=== PATIENT | male | born 1960 | race Two or more races ===

== ENCOUNTER 2019-01-28 09:22 | Outpatient (CLI) | payer OTHER | END 2019-01-28 10:00 | disposition home or self-care (01) | LOC: RAD 09:22 | DX: E78.49 Other hyperlipidemia (principal); I10 Essential (primary) hypertension ==

== ENCOUNTER 2021-08-20 13:28 | Outpatient (CLI) | payer OTHER | END 2021-08-20 13:39 | disposition home or self-care (01) | LOC: RAD 13:28 | DX: J32.9 Chronic sinusitis, unspecified (principal) ==

== ENCOUNTER 2021-10-08 15:59 | Outpatient (CLI) | payer OTHER | END 2021-10-08 16:07 | disposition home or self-care (01) | LOC: RAD 15:59 | PROVIDERS: ATTEND Chiropractor | DX: M54.2 Cervicalgia (principal); M54.6 Pain in thoracic spine; M54.50 Low back pain, unspecified ==

== ENCOUNTER 2024-10-25 15:06 | Outpatient (CLI) | payer OTHER ==
[2024-10-25] MEDS ORDERED: IRBESARTAN75 MG PO (17:19)
== END 2024-10-25 15:16 | disposition home or self-care (01) ==
LOC: RAD 15:06
DX: I10 Essential (primary) hypertension (principal)

== ENCOUNTER 2024-10-25 16:33 | Inpatient (IN) | payer OTHER ==
[~2024-10-25] VITALS: Ht 180.3 cm; Wt 90.7 kg
[2024-10-25] MEDS ORDERED: IRBESARTAN75 MG PO (17:19)
--- NOTE | 2024-10-25 17:34 | NUR ---
PACIENTE ALERTA Y ORIENTADO X3, INDICA PRESENTAR PALPITACIONES, SE REALIZA EKG Y SE PRESENTA A DR. NIEVES. SE UBICA EN AREA DE CUIDADO CRITICO.
[2024-10-25] MEDS ORDERED: DILTIAZEM HCL 25 MG/5 ML VIAL IV ONE (18:00)
[2024-10-25 18:10] LABS: BASO % 0.6 % (0.1-1.2); EOS # 0.35 (0.04-0.54); EOS % 4.2 % (0.7-7.0); LYMPH # 1.36 (1.18-3.74); LYMPH % 16.3 % (19.3-53.1); MEAN PLATELET VOLUME 9.20 fl (9.4-12.4); MONO # 0.87 (0.24-0.82); MONO % 10.4 % (4.7-12.5); NEUT # 5.68 (1.56-6.13); NEUT % 68.1 % (34.0-71.1); RED CELL DISTRIBUTION WIDTH 11.9 % (11.6-14.4)
--- NOTE | 2024-10-25 18:20 | NUR ---
SE RECIBE A PACIENTE ALERTA Y ORIENTADO X3 EN AREA DE CRITICO, SE CONECTA A MONITOR CARDIACO Y OXIMETRIA CONTINUA. SE EDUCA A PACIENTE SOBRE PROCESO DE CHIO DE MUESTRAS, CANALIZACION Y ADMINISTRACION DE MEDICAMENTOS, REFIERE ENTENDER. SE KATHIA MUESTRAS DE LABORATORIO Y SE ADMINISTRAN MEDICAMENTOS MIKE ORDEN MEDICA Y BAJO MEDIDAS ASEPTICAS. SE DON A PACIENTE EN CAMA A NIVEL DE PISO JUNTO CON BARRANDAS ELEVADAS, SE OBSERVAN POR CAMBIOS SIGNIFICATIVOS EN CONDICION.
[2024-10-25 18:47] LABS: INR 1.0
[2024-10-25 18:55] LABS: ALT/SGPT 27.0 U/L (12-78); AST/SGOT 17.0 U/L (15-37); BILIRUBIN TOTAL 0.71 mg/dL (0.3-1.2); BUN CREA RATIO 15.0 (7.0-25.0); CREATININE SERUM 1.43 mg/dL (0.70-1.30); GFR 50.11; GLOBULINA 3.6 G/DL (2.4-3.5); GLUCOSE FASTING 113.0 mg/dL (65-100); OSMOLALITY SERUM 284.0 MOSM/KG (275-295)
[2024-10-25] MEDS ORDERED: ENOXAPARIN SODIUM 60 MG/0.6 ML SYRINGE SUBCUTANEO SCH (22:26)
[2024-10-25] MEDS ORDERED: 0.9 % SODIUM CHLORIDE 1,000 ML IV SCH (22:30)
[2024-10-25] MEDS ORDERED: ACETAMINOPHEN 500 MG GEL..CAP PO PRN (22:30)
[2024-10-26] VITALS (9 sets, daily range): BP systolic 99–136; BP diastolic 63–84; O2SAT 90–99
[2024-10-26] MEDS ORDERED: METOPROLOL SUCCINATE 25 MG TAB.SR.24H PO SCH (09:00)
[2024-10-26] MEDS ORDERED: FAMOTIDINE/PF 20 MG in 0.9 % SODIUM CHLORIDE 8 ML IV PUSH SCH (09:00)
[2024-10-27] VITALS (7 sets, daily range): BP systolic 115–147; BP diastolic 73–85; O2SAT 90–98
[2024-10-27 06:55] LABS: ALT/SGPT 20.0 U/L (12-78); AST/SGOT 11.0 U/L (15-37); BILIRUBIN TOTAL 0.95 mg/dL (0.3-1.2); BUN CREA RATIO 16.0 (7.0-25.0); CREATININE SERUM 0.94 mg/dL (0.70-1.30); GFR 81.32; GLOBULINA 3.0 G/DL (2.4-3.5); GLUCOSE FASTING 99.0 mg/dL (65-100); OSMOLALITY SERUM 284.0 MOSM/KG (275-295); PHOSPHOKINASE CREATININE 51.0 U/L (39-308)
[2024-10-27] MEDS ORDERED: ASPIRIN 81 MG TABLET.EC PO SCH (09:00)
[2024-10-27] MEDS ORDERED: RIVAROXABAN 20 MG TABLET PO SCH (09:00)
[2024-10-27 12:00] LABS: BASO % 0.7 % (0.1-1.2); EOS # 0.28 (0.04-0.54); EOS % 3.3 % (0.7-7.0); LYMPH # 1.51 (1.18-3.74); LYMPH % 17.8 % (19.3-53.1); MEAN PLATELET VOLUME 9.20 fl (9.4-12.4); MONO # 1.22 (0.24-0.82); NEUT # 5.33 (1.56-6.13); NEUT % 62.6 % (34.0-71.1); RED CELL DISTRIBUTION WIDTH 11.9 % (11.6-14.4)
[2024-10-27 12:06] LABS: MONO % 14.4 % (4.7-12.5)
[2024-10-27] MEDS ORDERED: TOPROL XL25 M1 PO (17:22)
[2024-10-27] MEDS ORDERED: ST. JOSEPH ASPI81 M2 PO (17:23)
== END 2024-10-27 18:35 | disposition home or self-care (01) | DRG 309 ==
LOC: ER 16:33 → MEDI 23:19
PROVIDERS: Emergency Medicine; Internal Medicine Nephrology; ADMIT Internal Medicine; ATTEND Internal Medicine
PROC: B246ZZZ Ultrasonography of Right and Left Heart (ICD-10-PCS; principal; 2024-10-25)
PROC: 4A12X4Z Monitoring of Cardiac Electrical Activity, External Approach (ICD-10-PCS; 2024-10-26)
DX: I48.0 Paroxysmal atrial fibrillation (principal); N17.8 Other acute kidney failure; I10 Essential (primary) hypertension